=== PATIENT | female | born 1975 | race Caucasian/White ===

== ENCOUNTER 2023-12-25 09:57 | Observation (INO) | payer BC ==
[~2023-12-25] VITALS: Ht 165.1 cm; Wt 88.9 kg
[2023-12-25] MEDS: ceFAZolin SOD 2 GM in IV 1 EA IV ONE (06:00)
[~2023-12-25 09:57] MED LIST: CETI10CH PO; CYCL5TAB PO; HYDR-3713 PO; LR 1,000 ML IV SCH; LYRI200C PO; MOME50SP2; NYST1POW9 TOP; REST0.05 OD; RITA20TA PO; TIRZ10PE SQ; VENTAER INH
[2023-12-25] MEDS ORDERED: propofoL 200 MG/20 ML VIAL As Ordered ONE (10:21)
[2023-12-25] MEDS ORDERED: dexmedeTOMIDine (4MCG/ML)200MCG/50ML BTL (PRECEDEX) As Ordered ONE (10:21)
[2023-12-25] MEDS ORDERED: ROCURONIUM BROMIDE 50MG/5ML VIAL As Ordered ONE (10:21)
[2023-12-25] MEDS ORDERED: MIDAZOLAM INJ 2MG/2ML VIAL As Ordered ONE (10:21)
[2023-12-25] MEDS ORDERED: ONDANSETRON 4MG 2ML VIAL As Ordered ONE (10:21)
[2023-12-25] MEDS ORDERED: LIDOCAINE 2% 100MG/5ML SDV (FOR ANES.) As Ordered ONE (10:21)
[2023-12-25] MEDS ORDERED: fentaNYL 250 MCG/5 ML INJECTION As Ordered ONE (10:22)
[2023-12-25] MEDS ORDERED: SUGAMMADEX SODIUM 500 MG/5 ML VIAL (BRIDION) As Ordered ONE (10:30)
[2023-12-25] MEDS ORDERED: GENTAMICIN SULF 80MG/2ML VIAL As Ordered ONE (13:01)
[2023-12-25] MEDS: HEPARIN SOD (PORCINE) 5000UNITS/ML 1ML VIAL/SYRINGE SQ ONE (13:34)
[2023-12-25] MEDS ORDERED: ePHEDrine SULFATE 25 MG/5 ML(5MG/ML) SYRINGE As Ordered ONE (14:53)
[2023-12-25] MEDS ORDERED: ACETAMINOPHEN 1000MG 100ML IV BAG As Ordered ONE (14:56)
[2023-12-25] MEDS ORDERED: HYDROmorphone HCL 2MG/ML 1ML VIAL As Ordered ONE (15:11)
[2023-12-25] MEDS ORDERED: SEVOFLURANE INHAL SOLN 250 ML BTL As Ordered ONE (15:26)
[2023-12-25] MEDS ORDERED: ONDANSETRON 4MG 2ML VIAL IV PRN ×2 (16:45→16:55)
[2023-12-25] MEDS: LR 1,000 ML IV SCH ×2 (16:45→18:54)
[2023-12-25] MEDS ORDERED: fentaNYL 100 MCG/2 ML INJECTION IV PRN (16:45)
[2023-12-25] MEDS ORDERED: oxyCODONE 5MG TAB PO PRN (16:45)
[2023-12-25] MEDS ORDERED: traMADol 50 MG TAB PO PRN (16:55)
[2023-12-25] MEDS: HYDROMORPHONE HCL 0.5 MG/ 0.5 ML SYRINGE IV PRN (17:44)
[2023-12-25 18:20] VITALS: BP 131/86; TEMP 97.5; O2SAT 99
[2023-12-25 18:50] VITALS: BP 130/86; TEMP 97.7; O2SAT 98
[2023-12-25 19:25] VITALS: BP 105/71; TEMP 98.6; O2SAT 95
[2023-12-25 20:20] VITALS: BP 106/71; TEMP 98.4; O2SAT 96
[2023-12-25 21:21] VITALS: BP 110/68; TEMP 97.9; O2SAT 95
[2023-12-25] MEDS: ceFAZolin SOD 1 GM in D5W MINI-BAG PLUS 50 ML IV SCH (21:46)
[2023-12-25 22:19] VITALS: BP 112/66; TEMP 98.2; O2SAT 95
[2023-12-26] MEDS: ACETAMINOPHEN TAB 650MG DOSE (2X325MG) PO PRN (00:08)
[2023-12-26] MEDS: NORCO, ANEXSIA 5/325MG TABLET (HYDROcodone/ACETAMINOPHEN) PO PRN (02:19)
[2023-12-26 02:36] VITALS: BP 95/52; TEMP 98.4; O2SAT 94
[2023-12-26] MEDS ORDERED: HYDR-4571 PO (06:06)
[2023-12-26] MEDS ORDERED: ALBU8.5H INH (06:06)
[2023-12-26] MEDS ORDERED: NYST1POW9 TOP (06:06)
[2023-12-26] MEDS ORDERED: TIRZ7.5P SC (06:06)
[2023-12-26] MEDS ORDERED: REST0.05 OU (06:06)
[2023-12-26] MEDS ORDERED: CETI-24 PO (06:06)
[2023-12-26] MEDS ORDERED: MOME50SP2 NARES (06:06)
[2023-12-26] MEDS ORDERED: OMEP40CA5 PO (06:07)
[2023-12-26] MEDS ORDERED: FURO20TA2 PO (06:07)
[2023-12-26] MEDS ORDERED: AIMO70IN SC (06:07)
[2023-12-26] MEDS ORDERED: HOME MED LIST COMPLETE! XX SCH (06:10)
[2023-12-26 06:41] VITALS: BP 109/69; TEMP 97.6; O2SAT 95
== END 2023-12-26 14:05 | disposition home or self-care (01) ==
LOC: M SDC 09:57 → M RR INP 09:58 → M MS5PR 18:10
PROVIDERS: ADMIT Plastic Surgery Surgery of the Hand; ATTEND Plastic Surgery Surgery of the Hand
DX: M79.3 Panniculitis, unspecified (principal); E11.9 Type 2 diabetes mellitus without complications; Z79.899 Other long term (current) drug therapy; Z79.85 Long-term (current) use of injectable non-insulin antidiabetic drugs; Z88.5 Allergy status to narcotic agent; Z88.8 Allergy status to other drugs, medicaments and biological substances
CPT/HCPCS: 15830; 87635; 88300; 96361; 96374; 96376; C9290; J0131; J0665; J0690; J1100; J1170; J1580; J2250; J2405; J3010